=== PATIENT | male | born 1990 | race African-American/Black ===

== ENCOUNTER 2018-06-18 10:00 | Emergency (ER) | payer BC ==
[2018-06-18] MEDS: LIDOCAINE 1% (MDV) 20 ML INJ SC (14:23)
[2018-06-18] MEDS: IBUPROFEN 600 MG TAB PO (16:48)
== END 2018-06-18 17:28 | disposition home or self-care (01) ==
LOC: FTE 10:00
DX: S62.344A Nondisplaced fracture of base of fourth metacarpal bone, right hand, initial encounter for closed fracture (principal); S92.421A Displaced fracture of distal phalanx of right great toe, initial encounter for closed fracture; S92.411A Displaced fracture of proximal phalanx of right great toe, initial encounter for closed fracture; W22.8XXA Striking against or struck by other objects, initial encounter; Y92.9 Unspecified place or not applicable
CPT/HCPCS: 29125; 73110-RT; 73130-RT; 73630; 99284-25